=== PATIENT | female | born 1985 | race Caucasian/White ===

== ENCOUNTER → 2025-05-21 10:49 | Outpatient (REF) | payer OTHER, SELFPAY | LOC: PNTC 10:49 | PROVIDERS: ATTENDING PHYSICIAN Student in an Organized Health Care Education/Training Program | DX: O09.522 Supervision of elderly multigravida, second trimester (principal); Z87.59 Personal history of other complications of pregnancy, childbirth and the puerperium | CPT/HCPCS: 76805 ==